=== PATIENT | female | born 1995 | race African-American/Black ===

== ENCOUNTER 2025-02-23 08:27 | Emergency (ER) | payer MEDICARE ==
[~2025-02-23] VITALS: Ht 175.3 cm; Wt 66.7 kg
--- NOTE | 2025-02-23 09:59 | Physician Documentation ---
History of Present Illness ~ Chief Complaint: Hypothermia Stated Complaint: MILD HYPOTHERMIA Time Seen by MD: 09:08 Primary Medical Doctor: NO PCP Source: patient Mode of Arrival: EMS Exam Limitations: no limitations HPI 29-year-old homeless female was found outside with low body temperature. Hx Tetanus, Diphtheria Vaccina: No Medication Reconciliation Allergies: Coded Allergies: No Known Allergies (Unverified , 02/23/25) Past Medical History Past Medical History: No Pertinent History Past Surgical History: noncontributory Lives with: Alone Lives In: Homeless Occupation: disabled Review of Systems All Other Systems at this time: Reviewed and Negative Physical Exam Vital Signs: RN Vital Signs have been reviewed: Yes, Temperature: 97.8, Source: Oral, Heart Rate: 97, Respiratory Rate: 19, BP: 112/59, Pulse Oximetry: 99, Weight: 66.700 Oxygen Flow Rate: 0 Physical Exam General: Alert, no apparent distress. HEENT: moist mucous membranes. Neck: Full range of motion. Respiratory: No respiratory distress speaking in full sentences Chest: No accessory muscle use. Cardiovascular: Appears well perfused Neurologic: Oriented x4. Psychiatric: Normal mood and affect. Skin: Normal color, warm and dry. No edema, no ecchymosis. Progress Results/Orders Results/Orders Vital Signs 02/23/25 08:35 Temp 97.8 Pulse 97 Resp 19 B/P (MAP) 112/59 Pulse Ox 99 O2 Flow Rate 0 Medical Decision Making Additional information obtaine: old records Findings Patient when brought in by EMS was given warm like it is a closed. Patient is normothermic. Discussed safe discharge potentially to the [place] patient does state that she has a safe place to stay. We will discharge Differential Dx:Considerations: Include: Hypothermia, Other Departure Time of Disposition: 09:59 Disposition: 01 HOME / SELF CARE / HOMELESS Impression: Primary Impression: Hypothermia due to cold environment Condition: Stable Discharge Instructions: Preventing Hypothermia Additional Instructions: Try to stay warm and sheltered. Keep close clean and dry. Monitor for any new or worsening symptoms feel free to return to the ER. Referrals: NO PRIMARY CARE PROVIDER (PCP) Education Educated: Patient Educated regarding: diagnosis, treatment, need for follow up Signature Scribe Signature: No scribe Attestation: The note accurately reflects work and decisions made by me.Radha KIRBY 02/23/25 09:59 RADHA JONES NP Feb 23, 2025 09:59
[2025-02-23 10:57] VITALS: BP 118/72; PULSE 75; RESP 16; TEMP 97.8; O2SAT 98
== END 2025-02-23 10:59 | disposition home or self-care (01) ==
LOC: ER 08:28
DX: T68.XXXA Hypothermia, initial encounter (principal); Z59.00 Homelessness unspecified; Z60.2 Problems related to living alone; X31.XXXA Exposure to excessive natural cold, initial encounter; Y93.89 Activity, other specified; Y92.89 Other specified places as the place of occurrence of the external cause; Y99.8 Other external cause status
CPT/HCPCS: 99283